=== PATIENT | female | born 1960 | race Two or more races ===

== ENCOUNTER 2016-04-21 17:11 | Emergency (ER) | payer OTHER ==
--- NOTE | 2016-04-21 18:19 | RAD ---
Name: JING JENKINS Exam: Two-view chest Comparison: None Clinical history: Chest pain Findings: 2 views of the chest are submitted. The heart mediastinum and hilar structures are within normal limits. There is no failure, infiltrate, pleural effusion or pneumothorax. Regional skeleton is within normal limits. There is been prior right mastectomy and axillary dissection. Left rotator cuff calcific tendinopathy is present. Impression: 1. No acute cardiopulmonary process 2. Prior right mastectomy and axillary dissection 3. Left rotator cuff calcific tendinopathy
[2016-04-21 18:38] LABS: ABSOLUTE NEUTROPHIL COUNT 4.4 K/mm3 (1.8-7.7); BASO # 0.1 K/mm3 (0.0-0.2); BASO % 0.5 % (0.2-1.0); EOS # 0.1 (0.0-0.5); EOS % 0.5 % (0.9-2.9); HEMATOCRIT 35.6 % (37.0-47.0); IMM NEUT% 0.2 % (0-1); LYMPH # 3.8 (1.0-4.8); LYMPH % 41.1 % (15-45); MEAN CELL VOLUME 95.2 fl (81.0-99.0); MEAN CORPUSCULAR HEMOGLOBIN 32.1 pg (27.0-31.0); MEAN CORPUSCULAR HGB CONC 33.7 g/dl (33.0-37.0); MEAN PLATELET VOLUME 10.5 fl (7.4-10.4); MONO % 10.6 % (4-12); NEUT % 47.1 % (43-75); PLATELET COUNT 246 K/mm3 (130-400); RED CELL DISTRIBUTION WIDTH 12.8 % (11.5-14.5)
[2016-04-21] MEDS ORDERED: SODIUM CHLORIDE 0.9% 1,000 ML ONE (18:42)
[2016-04-21] MEDS ORDERED: LORAZEPAM 2 MG/ML 1ML SDV ONE (18:43)
[2016-04-21 19:03] LABS: ALB/GLOB RATIO 1.1 (>1.0); ALBUMIN 3.9 gm/dL (3.5-5.7); CALCIUM 9.4 mg/dL (8.6-10.3)
[2016-04-21 19:38] LABS: TROPONIN I < 0.01 ng/ml (0.0-0.06)
[2016-04-21 19:39] LABS: URINE BILIRUBIN NEGATIVE (NEGATIVE); URINE BLOOD TRACE (NEGATIVE); URINE GLUCOSE (UA) NEGATIVE (NEGATIVE); URINE LEUKOCYTE ESTERASE NEGATIVE (NEGATIVE); URINE NITRITE NEGATIVE (NEGATIVE); URINE PROTEIN NEGATIVE (NEGATIVE); URINE UROBILINOGEN NORMAL (0-1 mg/dl)
[2016-04-21 19:41] LABS: URINE APPEARANCE CLEAR; URINE COLOR YELLOW
[2016-04-21 19:42] LABS: CKMB ISOENZYME 1.2 ng/ml (0.6-6.3)
[2016-04-21 19:52] LABS: URINE EPITHELIAL CELLS 0 /hpf; URINE RBC 0-1 /hpf; URINE WBC NEG /hpf
[2016-04-21 19:53] LABS: URINE BACTERIA RARE
== END 2016-04-21 20:56 | disposition home or self-care (01) ==
LOC: ED 17:11
DX: F32.9 Major depressive disorder, single episode, unspecified (principal); R07.9 Chest pain, unspecified; R53.1 Weakness; R06.02 Shortness of breath
CPT/HCPCS: 85025; 82553; 80053; 84484; 81001; 71020; 99283 ×2; 96374; 96361 ×2; 82962; J2060; J7030

== ENCOUNTER 2016-05-10 18:31 | Emergency (ER) | payer OTHER ==
[2016-05-10] MEDS ORDERED: IOPAMIDOL 300 (61%) 100 ML VIAL IV ONE (18:32)
[2016-05-10] MEDS ORDERED: SODIUM CHLORIDE 0.9% 1,000 ML ONE (19:34)
[2016-05-10 19:36] LABS: PH,URINE 6.5 (5.0-8.0); URINE BILIRUBIN NEGATIVE (NEGATIVE); URINE BLOOD NEGATIVE (NEGATIVE); URINE GLUCOSE (UA) NEGATIVE (NEGATIVE); URINE LEUKOCYTE ESTERASE NEGATIVE (NEGATIVE); URINE NITRITE NEGATIVE (NEGATIVE); URINE PROTEIN NEGATIVE (NEGATIVE); URINE UROBILINOGEN NORMAL (0-1 mg/dl)
[2016-05-10 19:38] LABS: URINE APPEARANCE CLEAR; URINE COLOR YELLOW
[2016-05-10 19:43] LABS: ABSOLUTE NEUTROPHIL COUNT 3.7 K/mm3 (1.8-7.7); BASO # 0.1 K/mm3 (0.0-0.2); BASO % 0.6 % (0.2-1.0); EOS # 0.1 (0.0-0.5); EOS % 1.3 % (0.9-2.9); HEMATOCRIT 36.2 % (37.0-47.0); HEMOGLOBIN 11.8 gm/l (12.0-16.0); IMM NEUT% 0.4 % (0-1); LYMPH # 3.2 (1.0-4.8); LYMPH % 41.5 % (15-45); MEAN CELL VOLUME 95.3 fl (81.0-99.0); MEAN CORPUSCULAR HEMOGLOBIN 31.1 pg (27.0-31.0); MEAN CORPUSCULAR HGB CONC 32.6 g/dl (33.0-37.0); MEAN PLATELET VOLUME 10.6 fl (7.4-10.4); MONO # 0.7 (0.0-0.8); MONO % 9.4 % (4-12); NEUT % 46.8 % (43-75); PLATELET COUNT 282 K/mm3 (130-400); RED CELL DISTRIBUTION WIDTH 12.9 % (11.5-14.5)
[2016-05-10 20:08] LABS: ALBUMIN 3.7 gm/dL (3.5-5.7); ALT/SGPT 14 U/L (7-52); BLOOD UREA NITROGEN 14 mg/dL (7-25); BUN/CREATININE RATIO 23 (6-20); C-REACTIVE PROTEIN < 0.3 mg/dl (<1.0); CALCIUM 9.1 mg/dL (8.6-10.3); GLOMERULAR FILTRATION RATE 104 mL/min (60-93)
--- NOTE | 2016-05-10 21:35 | CT ---
Name: IJNG JENKINS Exam: CT head without contrast Comparison: None Clinical history: Weakness and dehydration. Headache. Technique: Helical CT was performed through the head. Angled axial reconstructions were obtained. Sagittal and coronal reconstructions were obtained as well. No contrast was given. An automated dose reduction technique was used to minimize patient radiation dose. Findings: There is no shift of the midline structures. Ventricles are of normal size and configuration. Cavum septum pellucidum and cavum septum vergae normal variants are present. There is no mass, mass effect or hemorrhage. Cisterns are uneffaced. Posterior fossa is unremarkable. There is no fracture. Visualized paranasal sinuses and mastoid air cells are within normal limits. Impression: No acute intracranial process Note: The above report was uploaded to [facility]'s electronic medical records system at 2127 hours.
--- NOTE | 2016-05-10 21:53 | CT ---
Name: JING JENKINS Exam: CT chest, abdomen and pelvis with contrast Comparison: None Clinical history: Weakness and dehydration PROCEDURE: Helical CT using multidetector technique was applied to the chest, abdomen and pelvis during intravenous ministration 1 or cc of [id number]. Oral contrast was not given per ordering physician. Findings: CT chest (contrast-enhanced): Heart is not enlarged. There is no pericardial effusion. Aorta is atherosclerotic and normal caliber. There is a common origin for the innominate artery and left common carotid artery which is a normal variant. There is a 12 mm coarse calcification in the left thyroid lobe. At the inferior margin of the left thyroid lobe, there is a 5.6 mm hypodense nodule. Reactive lymph nodes are noted within the axillas. The right breast is absent. There is no suspicious mediastinal or hilar adenopathy. Large airways are clear. Within the left lung base, there is a lobulated noncalcified soft tissue nodule that measures 15 x 11 x 10 mm in size. There is a small amount of atelectasis. There is no pleural effusion or pneumothorax. Left rotator cuff calcific tendinopathy is present. Multilevel degenerative disease of the spine is identified. CT abdomen (contrast enhanced): Liver is homogeneous and normal size. The gallbladder is not distended. There is no suspicious biliary dilation. The head of the pancreas is normal. The body and tail of the pancreas are absent. The spleen is absent as well. Kidneys and adrenal glands are normal. Aorta, IVC and portal vein are normal. Stomach and small bowel are normal. There is mild to moderate stool within the colon. Diverticulosis is present without current evidence for diverticulitis. Posterior to the diaphragmatic hiatus, to the left midline, there is a well-circumscribed oval solid mass that measures 14 x 10 mm in size. This could represent a splenules or lymph node. Small fat filled umbilical hernia is present. There is mild degenerative disease of the spine. CT pelvis (contrast enhanced): Bladder is normal. Normal size uterus is to the left. Ovaries are thought to be symmetric. There is diverticulosis of the sigmoid colon without current evidence for diverticulitis. Small bowel and appendix are normal. There is no free air, free fluid or suspicious adenopathy. Regional skeleton is within normal limits. Impression: 1. 15 mm lobulated noncalcified soft tissue nodule within the left lung base. Differential considerations include primary neoplasm and metastatic disease given the absent right breast 2. 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 3. 14 x 10 mm oval solid nodule posterior to the diaphragmatic hiatus. This could represent a lymph node or a splenules 4. Distal colonic diverticulosis without current evidence for diverticulitis 5. Normal appendix. There is no bowel obstruction. 6. Senescent changes of the chest abdomen and pelvis. Note: The above report was uploaded to [facility]'s electronic medical records system at 2148 hours.
--- NOTE | 2016-05-11 07:52 | RAD ---
EXAMINATION:CHEST - 2 VIEWS CLINICAL INDICATION: Weakness COMPARISON: 04/21/2016 FINDINGS: Heart size is normal. 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 There is no adenopathy identified. There is no pleural effusion. The lungs are clear. The osseous structures are unremarkable for age. IMPRESSION: Stable senescent changes of the thorax. No acute cardial prominent process is identified.
== END 2016-05-10 23:25 | disposition home or self-care (01) ==
LOC: ED 18:31
DX: R91.1 Solitary pulmonary nodule (principal); R53.1 Weakness; R53.83 Other fatigue; R63.4 Abnormal weight loss
CPT/HCPCS: 86141; 85025; 80053; 81003; 84443; 71020; 74177; 70450; 71260; 99284 ×2; 93005; J7030; Q9967

== ENCOUNTER 2016-05-16 16:42 | Emergency (ER) | payer OTHER ==
[2016-05-16 17:33] LABS: ABSOLUTE NEUTROPHIL COUNT 4.3 K/mm3 (1.8-7.7); BASO % 0.4 % (0.2-1.0); EOS % 0.5 % (0.9-2.9); HEMATOCRIT 38.5 % (37.0-47.0); HEMOGLOBIN 12.6 gm/l (12.0-16.0); IMM NEUT% 0.4 % (0-1); LYMPH % 37.6 % (15-45); MEAN CELL VOLUME 95.3 fl (81.0-99.0); MEAN CORPUSCULAR HEMOGLOBIN 31.2 pg (27.0-31.0); MEAN CORPUSCULAR HGB CONC 32.7 g/dl (33.0-37.0); MEAN PLATELET VOLUME 10.4 fl (7.4-10.4); MONO # 0.7 (0.0-0.8); MONO % 8.2 % (4-12); NEUT % 52.9 % (43-75); PLATELET COUNT 272 K/mm3 (130-400); RED CELL DISTRIBUTION WIDTH 12.8 % (11.5-14.5)
[2016-05-16 17:48] LABS: PH,URINE 6.5 (5.0-8.0); SPECIFIC GRAVITY 1.015 (1.001-1.030); URINE BILIRUBIN NEGATIVE (NEGATIVE); URINE BLOOD NEGATIVE (NEGATIVE); URINE GLUCOSE (UA) NEGATIVE (NEGATIVE); URINE LEUKOCYTE ESTERASE NEGATIVE (NEGATIVE); URINE NITRITE NEGATIVE (NEGATIVE); URINE PROTEIN NEGATIVE (NEGATIVE); URINE UROBILINOGEN NORMAL (0-1 mg/dl)
[2016-05-16 17:49] LABS: URINE APPEARANCE CLEAR; URINE COLOR YELLOW
[2016-05-16 17:49] LABS: ALB/GLOB RATIO 1.1 (>1.0); ALBUMIN 4.2 gm/dL (3.5-5.7); CALCIUM 9.5 mg/dL (8.6-10.3)
[2016-05-16 18:03] LABS: AMPHETAMINES/METHAMPHETAMINES NEGATIVE (NEGATIVE); COCAINE NEGATIVE (NEGATIVE); MARIJUANA NEGATIVE (NEGATIVE); METHADONE NEGATIVE (NEGATIVE); OPIATES NEGATIVE (NEGATIVE); TRICYCLIC ANTIDEPRESSANTS NEGATIVE (NEGATIVE)
[2016-05-16] MEDS ORDERED: LORAZEPAM 1 MG TABLET ONE (18:14)
[2016-05-16 22:50] LABS: ACETAMINOPHEN < 10 ug/ml; SALICYLATE < 4 mg/dl (0-30)
[2016-05-17] MEDS ORDERED: LORAZEPAM 1 MG TABLET ONE ×3 (06:23→18:01)
[2016-05-18] MEDS ORDERED: LORAZEPAM 1 MG TABLET ONE ×2 (05:51→20:40)
[2016-05-18] MEDS ORDERED: SODIUM CHLORIDE 0.9% 1,000 ML ONE (13:03)
== END 2016-05-19 17:35 | disposition short-term general hospital (02) ==
LOC: ED 16:42
DX: F32.9 Major depressive disorder, single episode, unspecified (principal); R45.851 Suicidal ideations; Z85.3 Personal history of malignant neoplasm of breast
CPT/HCPCS: 80307 ×3; 85025; 80305; 80053; 81003; 99285 ×2; 96360; 96361; A9270 ×6; J7030